=== PATIENT | male | born 1995 | race Caucasian/White ===

== ENCOUNTER 2021-12-12 09:50 | Emergency (ER) | payer MEDICAID, SELFPAY ==
--- NOTE | 2021-12-12 10:01 | ED_ITS ---
HPI - Overdose General Chief Complaint: Overdose Stated Complaint: OD Time Seen by Provider: 12/12/21 09:51 Source: patient Mode of arrival: EMS Limitations: no limitations History of Present Illness HPI Narrative: 26 yo male no PMH has been feeling stressed recently due to loss of cousin but no SI, snorts typically 5 bags of heroin a day. Used one bag this AM, family found him laying down on the floor woke up with tactile stimuli. No narcan given and has been calm and appropriate since arrival. He does endorse interest in MAT therapy on arrival but not detox. MD complaint: accidental overdose Onset (ago): minute(s) (prior to arrival ) Context: Accidental Overdose: wanted to get high Associated symptoms: lethargy Treatments Prior to Arrival: none Related Data Previous Rx's Medication Instructions Recorded doxycycline hyclate 100 mg capsule 100 mg PO BID 10 days #20 caps 12/12/21 Allergies Allergy/AdvReac Type Severity Reaction Status Date / Time No Known Allergies Allergy Verified 12/12/21 10:07 Review of Systems Review of Systems: Constitutional : No Fever, No Chills ENT/Mouth : No Ear Pain, No Nasal Congestion, No sore throat Eyes: No Eye Pain, No Swelling, No Redness Cardiovascular : No Chest Pain, No SOB Respiratory : No Cough, No Sputum, No Dyspnea Gastrointestinal : No Nausea, No Vomiting, No Diarrhea, No Hematochezia, No Melena Genitourinary : No Dysuria, No Urinary Frequency, No Hematuria Musculoskeletal : No Myalgias Skin : No Skin Lesions, No rash Neuro : No Weakness, No Numbness, No Paresthesias, No Dizziness, No Headache Psych : positive Anxiety, no Depression, no SI/HI Heme/Lymph: No Lymphadenopathy Endocrine : No Polyuria, No Polydipsia All other systems reviewed and are negative [facility] Past Medical History Medical History Opiate use Social History Social History (Updated 12/12/21 @ 10:04 by Sylwia Michelle DO) Alcohol intake: current Alcohol intake frequency: a few times a week Patient Tobacco Use Status: Current everyday Tobacco user Use of substances other than those prescribed or required for medical reasons: Yes Substance Use Type: Heroin Last Used Substance: Just Prior to Admission Advance Directives: No Advance Directives Information Provided: No Physical Exam Vital Signs: Vital Signs: Last Vital Signs Temp 97.7 F 12/12/21 10:04 Pulse 72 12/12/21 11:58 Resp 12 12/12/21 11:58 BP 121/67 12/12/21 10:04 Pulse Ox 96 12/12/21 11:58 O2 Del Method 12/12/21 11:58 BMI result Body Mass Index 20.9 Appearance: Somnolent Oriented X3. No acute distress. Eyes: Pupils equal, round and reactive to light. 2mm ENT: Pharynx normal. Atraumatic head and face Neck: Normal inspection. Neck supple. CVS: Normal heart rate and rhythm. Pulses normal. Respiratory: No respiratory distress. Breath sounds normal. Abdomen: Soft and non-tender. Skin: Skin warm and dry. Normal skin color. Normal skin turgor. Extremities: No lower extremity edema. No calf ttp Neuro: Oriented X 3. No motor deficit. No sensory deficit. Course Course Course Narrative: + for gonorrhea and chlamydia now refusing suboxone/methadone wants to go home, no need for repeat narcan tolerating PO MDM - Overdose MDM Narrative Medical decision making narrative: 26 yo male with opiate use disorder here with accidental heroin overdose no SI, wants MAT therapy but not detox. RECOVERY team involved. Plan is to get him into the clinic. Will observe until more awake. No signs of head trauma. Lab Data Labs: Lab Results 12/12/21 Range/Units 10:44 Chlam trachomat DNA PCR DETECTED A (Not Detect.) N.gonorrhoeae DNA (PCR) DETECTED A (Not Detect.) Discharge Plan Discharge Clinical Impression: Opiate abuse, continuous, Chlamydial urethritis, Acute gonococcal urethritis Patient Disposition: Home, Self-Care Instructions: Chlamydia (ED), Gonorrhea (ED), Opioid Use Disorder (ED) Additional Instructions: return to ED for any worsening symptoms or concerns NO SEX FOR 1 WEEK WHILE ON TREATMENT TAKE ALL MEDICATIONS Prescriptions: New doxycycline hyclate 100 mg capsule 100 mg PO BID 10 Days Qty: 20 0RF
[2021-12-12 10:04] VITALS: BP 121/67; BP 126/70; PULSE 75; RESP 12; TEMP 36.5; O2SAT 96; O2SAT 98; BMI 20.9
[2021-12-12 10:08] VITALS: RESP 12; O2SAT 98
--- NOTE | 2021-12-12 10:36 | PC.NURSE ---
Pt ambulatory to bathroom with his RN and security for climate change risk assessor. States concerns for STI, probetec urine obtained, Dr Rahul boss. Denies SI, declines detox to this RN but interested in speaking CARE team for potential Methadone or Suboxone. Awake at this time, falls asleep but maintains sat 94-98% with RR 10-12.
[2021-12-12] MEDS: cefTRIAXone sodium 500 MG, Lidocaine HCl 1 % MPF 1 ML IM (11:22)
[2021-12-12] MEDS: Naloxone HCl Nasal TAKE HOME 4 MG SPRAY NOSTRILALT (11:22)
--- NOTE | 2021-12-12 11:37 | MHC.RECOVSUP ---
Recovery Support note: Patient is a 26 year old Ethiopian speaking male who presented to [facility] ED after using heroin and being found on the ground by his family. This va underwriter met with patient to discuss substance use and treatment options. Patient reports he is interested in started MAT and that he has been on Suboxone before. Patient declines ATS. Patient is difficult to engage and nods off during interview. This va underwriter will follow up with patient when he is more awake.
[2021-12-12 11:58] VITALS: PULSE 72; RESP 12; O2SAT 96
[2021-12-12 12:43] LABS: CT PCR DETECTED (Not Detect.); NG PCR DETECTED (Not Detect.)
--- NOTE | 2021-12-12 15:41 | MHC.RECOVSUP ---
Recovery Support note: This com writer met with patient prior to discharge to discuss substance use and treatment options. Patient declined SUDE. Patient reports daily heroin use of 5 bags a day and declines interest in detox. Patient previously expressed interest in MAT however at this time is requesting discharge and is not interested in discussing this further. This com writer offered to make patient an appointment at the [facility] however patient appeared indifferent. Patient provided with information for [facility] and encouraged him to come as a walk in or call ahead when he is ready to begin treatment. Patient acknowledged. Discussed case with ED physician.
== END 2021-12-12 16:00 | disposition home or self-care (01) ==
PROVIDERS: Emergency Provider Emergency Medicine
DX: T40.1X1A Poisoning by heroin, accidental (unintentional), initial encounter (principal); Y92.9 Unspecified place or not applicable; F17.200 Nicotine dependence, unspecified, uncomplicated; F11.19 Opioid abuse with unspecified opioid-induced disorder; A56.01 Chlamydial cystitis and urethritis; A54.01 Gonococcal cystitis and urethritis, unspecified; Z71.6 Tobacco abuse counseling; Z79.899 Other long term (current) drug therapy
CPT/HCPCS: 87491; 87591; 96372; 99284; J0696

== ENCOUNTER 2024-03-15 14:07 | Outpatient (REF) | payer MEDICAID, SELFPAY ==
--- OUTSIDE RECORDS SUMMARY | 2024-03-15 15:06 | XMS_ITS | Clinical Summary ---
Author Organization [employer] Address [address] [place] [address] Care Team Providers Care Formulator Name Role Phone Unavailable Primary Care Provider Unavailabl e Allergies No known active allergies Medications naloxone (Narcan) 4 mg/0.1 mL nasal spray Administer 1 spray (4 mg) into affected nostril(s) if needed for opioid reversal. May repeat every 2-3 minutes if needed, alternating nostrils, until medical assistance becomes available. 2 each 02/01/20 24 025 Active docusate sodium (Colace) 100 MG capsule Take 1 capsule (100 mg) by mouth if needed in the morning and at bedtime for constipation. 60 capsule 3 03/01/19 25 026 Active Buprenorphine HCl-Naloxone HCl (Suboxone) 8-2 MG SL filmIndicatio ns:Uncomplica aleshia opioid dependence (CMS/HCC) Place 1 Film under the tongue 2 times daily for 7 days. 14 Film 03/09/19 25 025 Active Buprenorphine HCl-Naloxone HCl (Suboxone) 8-2 MG SL filmIndicatio ns:Uncomplica aleshia opioid dependence (CMS/HCC) Place 1 Film under the tongue 2 times daily for 7 days. 14 Film 02/11/20 24 024 Discontinued(Re order (will not trigger notification to Pharmacy)) Buprenorphine HCl-Naloxone HCl (Suboxone) 8-2 MG SL filmIndicatio ns:Uncomplica aleshia opioid dependence (CMS/HCC) Place 1 Film under the tongue 2 times daily for 7 days. 14 Film 02/16/20 24 025 Discontinued(Re order (will not trigger notification to Pharmacy)) Buprenorphine HCl-Naloxone HCl (Suboxone) 8-2 MG SL filmIndicatio ns:Uncomplica aleshia opioid dependence (CMS/HCC) Place 1 Film under the tongue 2 times daily for 14 days. 28 Film 02/25/19 25 025 Discontinued(Re order (will not trigger notification to Pharmacy)) Active Problems Problem Noted Date Diagnosed Date Opioid dependence, uncomplicated 01/25/2024 Tobacco dependence 01/25/2024 Cocaine use 01/25/2024 Encounters Date Type Department Care Team Description 03/15/2024 2:15 PM EST Office Visit [address] [address] Salvatore Boss MD Opioid dependence, uncomplicated (CMS/HCC) (Primary Dx) 03/15/2024 Travel 03/09/[address] [address] Mera Yeh RN Uncomplicated opioid dependence (CMS/HCC) 03/01/2024 3:00 PM EST Office Visit [address] [address] Salvatore Boss MD Opioid type dependence, continuous (CMS/HCC) (Primary Dx) 03/01/2024 Travel 02/25/[address] [address] Mera Yeh RN Uncomplicated opioid dependence (CMS/HCC) 02/25/[address] [id number] Mera Yeh RN Uncomplicated opioid dependence (CMS/HCC) 02/23/2024 11:15 AM EST Clinical Support [address] [address] Mera Yeh RN Opioid type dependence, continuous (CMS/HCC) (Primary Dx) 02/23/[address] [address] Richard Fallon MD 02/23/2024 Patient Outreach [address] [phone] Chiki Avila Recovery Supports 02/23/2024 Travel 02/16/2024 Refill [facility] [address] [facility] [place] [address] Mera Yeh RN Uncomplicated opioid dependence (CMS/HCC) 02/15/2024 3:30 PM EST Office Visit [facility] [place] [address] Salvatore Boss MD Opioid dependence, uncomplicated (CMS/HCC) (Primary Dx) 02/15/2024 Travel 02/09/2024 Refill [facility] [place] [address] Mera Yeh RN Uncomplicated opioid dependence (CMS/HCC) 02/08/2024 2:30 PM EST Clinical Support [facility] [address] Mera Yeh RN Uncomplicated opioid dependence (CMS/HCC) (Primary Dx) 02/08/2024 Travel 02/02/2024 Refill [facility] [address] Mera Yeh RN Uncomplicated opioid dependence (CMS/HCC) 02/01/2024 3:15 PM EST Office Visit [facility] [address] Salvatore Boss MD Uncomplicated opioid dependence (CMS/HCC) (Primary Dx) 02/01/2024 Travel 01/28/2024 Refill [facility] [address] Mera Yeh RN Uncomplicated opioid dependence ([facility]/HCC) 01/25/2024 3:00 PM EST Office Visit [facility] [place] [address] Salvatore Bsos MD Uncomplicated opioid dependence (CMS/HCC) (Primary Dx) 01/25/2024 Travel 01/19/2024 Refill [facility] [place] [address] Mera Yeh RN Uncomplicated opioid dependence (CMS/HCC) 01/12/2024 Refill [facility] [place] [address] Mera Yeh RN Uncomplicated opioid dependence (CMS/HCC) 01/11/2024 3:30 PM EST Clinical Support [facility] [address] [place] [id number] Mera Yeh RN Uncomplicated opioid dependence (CMS/HCC) (Primary Dx) 01/11/2024 Patient Outreach [address] [address] Bruce Camp 01/11/2024 Travel 01/07/2024 Refill [facility] [address] [place] [address] Mera Yeh RN Uncomplicated opioid dependence (CMS/HCC) 01/06/2024 10:45 AM EST Clinical Support [address] [address] Mera Yeh RN Uncomplicated opioid dependence (CMS/HCC) (Primary Dx) 01/06/2024 Travel 12/30/2023 10:15 AM EST Clinical Support [address] [address] Lee Colon RN Uncomplicated opioid dependence (CMS/HCC) (Primary Dx) 12/30/2023 Refill [facility] [address] [place] [address] Lee Colon RN Uncomplicated opioid dependence (CMS/HCC) 12/30/[address] [address] Lee Colon RN New Patient request 12/30/2023 Travel 12/23/[address] [address] Lee Colon RN Uncomplicated opioid dependence (CMS/HCC) 12/22/2023 11:00 AM EST Office Visit [address] [address] Newton Lundberg MD Uncomplicated opioid dependence (CMS/HCC) (Primary Dx); Tobacco use disorder; Cocaine use 12/22/2023 Travel from Last 3 Months Social History Tobacco Use Types Packs/Day Years Used Date Smoking Tobacco: Every Day Cigarettes Smokeless Tobacco: Never Housing Stability Answer Date Recorded What is your housing situation today? I have lisa mandujano 01/25/[address] you li ve. Do you have problems with any of the following? None of the above 01/25/2024 Food Insecurity Answer Date Recorded Within the past 12 months, y ou worried that your food would run out before you got money to buy more: Never True 01/25/2024 Within the past 12 months,th e food you bought just didn't last and you didn't have enough money to get more: Never True 10/2023 Transportation Answer Date Recorded In the past 12 months, has l ack of transportation kept you from medical appts, meetings, work or from getting things needed for daily living? No 01/25/2024 Utilities Answer Date Recorded In the past 12 months, has t he electric, gas, oil or water company threatened to shut off services in your home? No 01/25/2024 Internet Access Answer Date Recorded Internet Access Q1 Yes 01/25/2024 Internet Access Q2 Not on file 01/25/2024 Sex and Gender Information Value Date Recorded Sex Assigned at Male 12/16/2021 10:40 AM EDT Legal Sex Male 10:40 AM EDT Gender Identity Male 12/16/2021 10:40 AM EDT Sexual Orientation Straight 12/16/2021 10 :40 AM EDT Last Filed Vital Signs Vital Sign Reading Time Taken Comments Blood Pressure 109/68 12/22/2023 11:03 AM EST Pulse 65 12/22/2023 11:03 AM EST Temperature 36.6 ??C (97.8 ??F) 12/22/2023 11:[address] Respiratory Rate 16 12/22/2023 11:03 AM EST Oxygen Saturation - - Inhaled Oxygen Concentration - - Weight 72.8 kg (160 lb 9.5 oz) 05/14/2021 12:03 AM EDT Height 169 cm (5' 6.54 ) 05/14/2021 12:03 AM EDT Body Mass Index 25.51 05/14/2021 12:03 AM EDT Plan of Treatment Upcoming Encounters Date Type Department Care Team (Late st Contact Info) Description 03/21/2024 1:30 PM EST Office Visit [facility] [address] [place] [address] Salvatore Boss MD [address] [place] [address] Health Maintenance Due Date Last Done Comments Depression Screening 1994 Lipid Panel 1994 Pneumococcal Vaccine: Pediatrics (0 to 5 Years) and At-Risk Patients (6 to 64 Years) (1 of 2 - PCV) 2000 Family Planning (PISQ) 2009 Hepatitis A Vaccines (1 of 2 - Risk 2-dose series) 2013 DTaP/Tdap/Td Vaccines (7 - Td or Tdap) 11/01/2015 10/31/2005, 06/18/1999, 06/15/1996, Additional history exists COVID-19 Vaccine ( - season) 2023 04/25/2021, 03/28/2021 Influenza Vaccine (#1) 2023 01/25/2009 Alcohol/Substance Use Screening 01/24/2025 01/25/2024 SDOH Screening 01/24/2025 01/25/2024 Tobacco Screening 03/15/2025 03/15/2024 Zoster Vaccines (1 of 2) 2044 RSV Patients and Patients Aged 60 years or older (1 - 1-dose 75+ series) 2069 Hepatitis B Vaccines Completed 12/17/1995, 08/16/1995, 04/15/1995, Additional history exists HIB Vaccines Completed 06/15/1996, 11/18, 06/16/1995, Additional history exists IPV Vaccines Completed 06/18/1999, 11/18, 12/17/1995, Additional history exists Meningococcal Vaccine Aged Out 02/17/2007 No parth skyla eligible based on patient's age to complete this topic HIV Screening Completed 06/06/2021 Hepatitis C Screening Completed 06/06/2021 HPV Vaccines Aged Out No longer eligi ble based on patient's age to complete this topic RSV under 20 months Aged Out No longe r eligible based on patient's age to complete this topic Rotavirus Vaccines Aged Out No longer eligible based on patient's age to complete this topic Procedures Procedure Name Priority Date/Time Associated Diagnosis Comments POCT VERONICA-14 URINE DRUG SCREEN Routine 03/15/2024 1:59 PM EST Opioid dependence, uncomplicated (CMS/HCC) POCT VERONICA-14 URINE DRUG SCREEN Routine 03/01/2024 3:00 PM EST Opioid type dependence, continuous (CMS/HCC) POCT VERONICA-14 URINE DRUG SCREEN Routine 02/23/2024 11:24 AM EST Opioid type dependence, continuous (CMS/HCC) POCT VERONICA-14 URINE DRUG SCREEN Routine 02/15/2024 3:58 PM EST Opioid dependence, uncomplicated (CMS/HCC) POCT VERONICA-14 URINE DRUG SCREEN Routine 02/08/2024 2:00 PM EST Uncomplicated opioid dependence (CMS/HCC) POCT VERONICA-14 URINE DRUG SCREEN Routine 02/01/2024 3:52 PM EST Uncomplicated opioid dependence (CMS/HCC) POCT VERONICA-14 URINE DRUG SCREEN Routine 01/25/2024 3:34 PM EST Uncomplicated opioid dependence (CMS/HCC) POCT VERONICA-14 URINE DRUG SCREEN Routine 01/11/2024 3:28 PM EST Uncomplicated opioid dependence (CMS/HCC) POCT VERONICA-14 URINE DRUG SCREEN Routine 01/06/2024 3:23 PM EST Uncomplicated opioid dependence (CMS/HCC) POCT VERONICA-14 URINE DRUG SCREEN Routine 12/30/2023 1:47 PM EST Uncomplicated opioid dependence (CMS/HCC) POCT VERONICA-14 URINE DRUG SCREEN Routine 12/22/2023 11:04 AM EST Uncomplicated opioid dependence (CMS/HCC) ZZZ HISTORICAL HEPATITIS C AB W/REFL TO HCV RNA, QN, PCR Routine 06/06/2021 2:56 PM EDT HIV 1/2 ANTIGEN/ANTIBODY, FOURTH GENERATION W/RFL Routine 06/06/2021 2:56 PM EDT from Last 3 Months or Most Recently Relevant to Health Maintenance Results * POCT VERONICA-14 Urine Drug Screen (03/15/2024 1:59 PM EST) Only the most recent of11 resultswithin the time period is included. Pathologist [facility] THC Negative Cocaine Screen, Urine Positive Opiate Screen, Urine Negative Methamphetamine Screen Urine Negative Amphetamine Screen, Urine Negative Benzodiazepines Screen, Urine Negative Barbiturate Screen, Urine Negative Methadone Screen, Urine Negative Buprenophine Screen, Urine Positive TCA, Urine Negative MDMA Urine Negative ng/mL Oxycodone Screen, Urine Negative Phencyclidine (PCP), Urine Negative Propoxyphene, Urine Negative Fentanyl, Urine Negative Urine Urine specimen obtained by clean catch procedure / Unknown 03/15/2024 1:59 PM EST us Salvatore Boss MD POINT OF CARE TEST ENTER/EDIT OR DERABLES Final Result * HEPATITIS C AB W/REFL TO HCV RNA, QN, PCR (06/06/2021 2:56 PM EDT) Pathologist [facility] HEPATITIS C ANTIBODY NON-REACT GRETCHEN NON-REACT GRETCHEN [facility] INDEX 0.01 <1.00 [facility] Comment: ?? HCV antibody was non-reactive. There is no laboratory ?? evidence of HCV infection. ?? In most cases, no further action is required. However, if recent HCV exposure is suspected, a test for HCV RNA (test code 55981) is suggested. ?? For additional information please refer to http://education.Autopilot/faq/UHB61v6 (This link is being provided for informational/ educational purposes only.) ?? 06/06/2021 2:56 PM EDT us Salvatore Boss MD HISTORICAL/NON ORDERABLE LABS Fi nal Result [facility] [address] * HIV 1/2 ANTIGEN/ANTIBODY,FOURTH GENERATION W/RFL (06/06/2021 2:56 PM EDT) [facility] HIV-1/2 ANTIGEN AND ANTIBODIES, 4TH GENERATION W/ REFLEX NON-REACT GRETCHEN NON-REACT GRETCHEN [facility] Comment: HIV-1 antigen and HIV-1/HIV-2 antibodies were not detected. There is no laboratory evidence of HIV infection. ?? PLEASE NOTE: This information has been disclosed to you from records whose confidentiality may be protected by state law. ??If your state requires such protection, then the state law prohibits you from making any further disclosure of the information without the specific written consent of the person to whom it pertains, or as otherwise permitted by law. A general authorization for the release of medical or other information is NOT sufficient for this purpose. ? For additional information please refer to http://education.Autopilot/faq/CHE215 (This link is being provided for informational/ educational purposes only.) ? The performance of this assay has not been clinically validated in patients less than 2 years old. ?? 06/06/2021 2:56 PM EDT us Salvatore Boss MD LAB BLOOD ORDERABLES Final Resul t Performing Organization Address City/State/[facility] Co de Phone Number [facility] [address] from Last 3 Months or Most Recently Relevant to Health Maintenance Insurance [address] [place] [address] [facility] [address] [place] [address]
--- OUTSIDE RECORDS SUMMARY | 2024-03-15 15:06 | XMS_ITS | Encounter Summary ---
Author Organization [employer] Address [address] [place] [address] Care Team Providers Care Repair Coil Winder Name Role Phone Unavailable Primary Care Provider Unavailabl e Encounter Details Date Type Department Care Team (Latest Contact Info) Description 02/23/2024 Travel Social History Tobacco Use Types Packs/Day Years [...] Orientation Straight 12/16/2021 10 :40 AM EDT documented as of this encounter Plan of Treatment Upcoming Encounters Date Type Department Care Team (Late st Contact Info) Description 03/21/2024 1:30 PM EST Office Visit [facility] [address] [place] [address] Salvatore Boss MD [address] [place] [address] documented as of this encounter Visit Diagnoses Not on filedocumented in this encounter
--- OUTSIDE RECORDS SUMMARY | 2024-03-15 15:06 | XMS_ITS | Encounter Summary ---
Author Organization [employer] Address [address] [facility] [address]t [place] [address] Care Team Providers Care Pathology Laboratory Director Name Role Phone Unavailable Primary Care Provider Unavailabl e Reason for Visit * Reason Comments [facility] Recovery Supports Encounter Details Date Type Department Care Team ([facility] st Contact Info) Description 02/23/2024 Patient Outreach [facility] [address] [place] [address] Chiki Avila Recovery Supports Social History Tobacco Use Types Packs/Day Years Used Date Smoking Tobacco: Every Day Cigarettes Smokeless Tobacco: Never Housing Stability Answer Date Recorded What is your housing situation today? I have lisasammy mandujano 01/25/[address] you [...] AM EDT documented as of this encounter Progress Notes * Chiki Avila - 02/23/2024 11:36 AM EST I met with Efrain today. Setting: in person at [facility] Recovery Wellness Goals worked on: Social Stability Action taken/next steps: Offered person centered recovery support Additional comments: Chiki Avila documented in this encounter Plan of Treatment Upcoming Encounters Date Type Department Care Team (Late st Contact Info) Description 03/21/2024 1:30 PM EST Office Visit [facility] [address] [place] [id number] Salvatore Boss MD [address] [place] [address] documented as of this encounter Visit Diagnoses Not on filedocumented in this encounter
--- OUTSIDE RECORDS SUMMARY | 2024-03-15 15:06 | XMS_ITS | Encounter Summary ---
Author Organization [employer] Address [address] [place] [address] Care Team Providers Care Travel Insurance Agent Name Role Phone Unavailable Primary Care Provider Unavailabl e Encounter Details Date Type Department Care Team (Latest Contact Info) Description 02/15/2024 Travel Social History Tobacco Use Types Packs/Day [...] Description 03/21/2024 1:30 PM EST Office Visit [facility] [address] [place] [address] Salvatore Boss MD [address] [place] [address] documented as of this encounter Visit Diagnoses Not on filedocumented in this encounter
--- OUTSIDE RECORDS SUMMARY | 2024-03-15 15:06 | XMS_ITS | Encounter Summary ---
Author Organization [employer] Address [address] [facility] 7t [place] [address] Care Team Providers Care Senior Ux Developer Name Role Phone Unavailable Primary Care Provider Unavailabl e Encounter Details Date Type Department Care Team ([facility] Contact Info) Description 02/23/2024 Telephone [facility] [address] [place], [place] [phone] Richard Fallon MD [address] [place], [place] [phone] Social History Tobacco Use Types Packs/Day Years [...] AM EDT documented as of this encounter Miscellaneous Notes * Telephone Encounter - Braden Lawson - 02/23/2024 1:37 PM EST Outgoing call to patient to book THEATRE PROGRAM DIRECTOR appt. No Answer. Left Message. documented in this encounter Plan of Treatment Upcoming Encounters Date Type Department Care Team (Late st Contact Info) Description 03/21/2024 1:30 PM EST Office Visit [facility] [address] [place] [phone] Salvatore Boss MD [address] [place] [address] documented as of this encounter Visit Diagnoses Not on filedocumented in this encounter
--- OUTSIDE RECORDS SUMMARY | 2024-03-15 15:06 | XMS_ITS | Encounter Summary ---
Author Organization [employer] Address [address] [facility] 7t [place] [address] Care Team Providers Care Manager Of Applications Development Name Role Phone Unavailable Primary Care Provider Unavailabl e Reason for Visit * Reason Onset Date Comments Med Refill 02/25/2024 Encounter Details Date Type Department Care Team ([facility] st Contact Info) Description 02/25/2024 Refill [facility] [address] [place] [address] Mera Yeh RN Uncomplicated opioid dependence (CMS/HCC) Social History Tobacco Use Types Packs/Day Years [...] Description 03/21/2024 1:30 PM EST Office Visit [facility] 230 [place] [address] Salvatore Boss MD 230 [place] [address] documented as of this encounter Visit Diagnoses Diagnosis Uncomplicated opioid dependence (CMS/HCC) documented in this encounter
--- OUTSIDE RECORDS SUMMARY | 2024-03-15 15:06 | XMS_ITS | Clinical Summary ---
Author Organization [facility] Address [address] [place] [address] Phone Care Team Providers Care Applique Cutter Name Role Phone Elicia Graves BUSINESS LINE CONTROLLER Primary Care Provider Unavail able Immunizations Name Administration Dates Next Due DTP 12/17/1995,06/16/1995,04/15/1995 DTaP 5 06/18/1999,06/15/1996 H1N1 01/25/2009 Hep B, ped/adol 12/17/1995,04/15/1995,1994 Hib (PRP-T) 06/15/1996, 6,06/16/1995, 996 IPV 12/17/1995,06/16/1995,04/15/1995 MMR 06/18/1999,12/17/1995 Meningococcal Conj (Menactra) MCV4P 02/17/2007 OPV 06/18/1999 Tdap 10/31/2005 Family History Relation Name Status Comments Half-Brother Alive Half brother (M ): Alive and well Half-Sister Alive Half sister (M) : Alive and well, Alive and well Mother Alive Mother: Alive a nd well Other 1 Alive grandparents si ster: Asthma Other 2 No family histo ry of Obesity, No family history of Autism, No family history of Diabetes mellitus, No family history of ADD/ADHD, No family history of Deafness, No family history of Sudden /MN under age 55, No family history of Elevated cholesterol, No family history of Seizure disorder, No family history of Developmental dislocation of hip, No family history of Strabismus/amblyopia, Family history of Migraines Social History Tobacco Use Types Packs/Day Years Used Date Smoking Tobacco: Never Assessed Sex and Gender Information Value Date Recorded Sex Assigned at Not on file Legal Sex Male 4:30 PM EDT Gender Identity Not on file Sexual Orientation Not on file Last Filed Vital Signs Vital Sign Reading Time Taken Comments Blood Pressure 102/74 06/28/2009 12:00 AM EDT Pulse 68 06/28/2009 12:00 AM EDT Temperature 36.4 ??C (97.5 ??F) 06/28/2009 12:00 AM E DT Respiratory Rate - - Oxygen Saturation - - Inhaled Oxygen Concentration - - Weight 53.1 kg (117 lb) 06/28/2009 12:00 AM EDT Height 165.1 cm (5' 5 ) 06/28/2009 12:00 AM EDT Body Mass Index 19.47 06/28/2009 12:00 AM EDT Plan of Treatment Health Maintenance Due Date Last Done Comments Varicella Vaccines (1 of 2 - 13+ 2-dose series) 08/14/2007 DTaP,Tdap,and Td Vaccines (7 - Td or Tdap) 11/01/2015 10/31/2005, 06/18/1999, 06/15/1996, Additional history exists Influenza Vaccines (#1) 2023 COVID-19 Vaccine ( season) 2023 Hepatitis B Vaccines Completed 12/17/1995, 04/15/1995, 1994 HIB Vaccines Completed 06/15/1996, 11/18, 06/16/1995, Additional history exists IPV Vaccines Completed 06/18/1999, 11/18, 06/16/1995, Additional history exists MMR Vaccines Completed 06/18/1999, 12/17/1995 Meningococcal Vaccine Aged Out 02/17/2007 No parth skyla eligible based on patient's age to complete this topic HPV Vaccines Aged Out No longer eligi ble based on patient's age to complete this topic Hepatitis A Vaccines Aged Out No long er eligible based on patient's age to complete this topic Men B Vaccine Aged Out No longer elig ible based on patient's age to complete this topic Pneumococcal Vaccine Aged Out No long er eligible based on patient's age to complete this topic Care Teams Applique Cutter Relationship Specialty Start Date End Date Elicia Graves NP PCP - General 09/26/16
--- OUTSIDE RECORDS SUMMARY | 2024-03-15 15:06 | XMS_ITS | Encounter Summary ---
Author Organization [employer] Address [address] [facility] 7t [place] [address] Care Team Providers Care Sales Development Coordinator Name Role Phone Unavailable Primary Care Provider Unavailabl e Reason for Visit * Reason Comments OBAT F/U Encounter Details Date Type Department Care Team (Latest Contact Info) Description 02/23/2024 11:15 AM EST Clinical Support [facility] 230 [place] [address] Mera Yeh RN Opioid type dependence, continuous (CMS/HCC) (Primary Dx) Social History Tobacco Use Types Packs/Day Years [...] as of this encounter Progress Notes * Mera Yeh RN - 02/23/2024 11:15 AM EST Patient ID: Efrain Sosa is a 28 y.o. male. HPI Patient here today for Opioid Dependence RV. Patient on current Suboxone dose of 16/4 mg on a weekly schedule. Patient has been in the program for 7 weeks. MD intake: 12/22/23. LFTs done: labs ordered. Behavioral health: declined 12/30/23 [place] PAT reviewed by provider. Last PCP appt: not assigned, requested 12/30/23 Smoking status: 1/2 ppd 12/22/23 PrEP: discussed and pt deferred, 12/30/23 LAST VISIT 02/15/24 MassPAT reviewed. UTOX: + bup, david, opi, fent States that day he was at a hotel pool, Suboxone strips were in his pocket, became wet and unusable. Yesterday had w/d sx and sniffed 1/2 bag of heroin ; nobody was present with Narcan. [facility] has fentanyl test kit and Narcan. [facility] will put strips in waterproof bottle in future. Sniffs cocaine. Declines attending meetings. Labs have not yet been done. No constipation. Lives with his mother. Has 2 sons ages 7 and 12 who live with their mother in [place]. He sees them. Smokes 1/2 PPD, declines NRT. Occasional EtOH On SSI. Suboxone dental care discussed at prior visit. No Constipation. He declines speaking with chemical recovery operator or . TODAY 02/23/24 UTOX: +Bup, david Efrain presents for OBAT RN IN PERSON VISIT for Opioid Use Disorder. He is alert and oriented. Speech clear, but difficult to engage in conversation. Continues to use cocaine 3 or 4 x per week ($20 each time). He says he has enough fentanyl strips to test the cocaine, but does not use them all the time. Reviewed the risks of contamination with fentanyl and/or other drugs and risk for overdose. [facility] he does not use alone. He has narcan, but does not have it at the ready for someone to use if necessary. Reviewed potential risk of cardiac arrest secondary to cocaine use. Went to the recovery center briefly while he waited for his appt card and spoke with [place], chemical recovery operator. Plan: Suboxone dosing schedule of 16/4 mg daily and management of side effects reviewed. Recovery support, harm reduction (including Narcan), and behavioral health attendance reviewed. Appointment for 01/11/24 given. Patient expressed understanding and agreement with continuing plan of care. This information has been disclosed to you from records protected by federal confidentiality rules (42 CFR Part 2). The federal rules prohibit you from making any further disclosure of information inthis record that identifies a patient as having or having had a substance use disorder either directly, by reference to publicly available information, or through verification of such identification by another person unless further disclosure is expressly permitted by the written consent of the individual whose information is being disclosed or as otherwise permitted by (see2.3.1). The federal rules restrict any use of the information to investigate or prosecute with regard to a crime any patient with a substance use disorder, except as provided at 2.12??(5) and 2.65 documented in this encounter Plan of Treatment Upcoming Encounters Date Type Department Care Team (Late st Contact Info) Description 03/21/2024 1:30 PM EST Office Visit [facility] [address] [place] [address] Salvatore Boss MD [address] [place] [address] documented as of this encounter Procedures Procedure Name Priority Date/Time Associated Diagnosis Comments POCT VERONICA-14 URINE DRUG SCREEN Routine 02/23/2024 11:24 AM EST Opioid type dependence, continuous ([facility]) documented in this encounter Results * POCT VERONICA-14 Urine Drug Screen (02/23/2024 11:24 AM EST) THC Negative Cocaine Screen, Urine Positive Opiate [...] obtained by clean catch procedure / Unknown 02/23/2024 11:24 AM EST us Newton Lundberg MD POINT OF CARE TEST ENTER/EDIT ORDERABLES Final Result documented in this encounter Visit Diagnoses Diagnosis Opioid type dependence, continuous (CMS/[facility])- Primary Opioid type dependence, continuous documented in this encounter
--- OUTSIDE RECORDS SUMMARY | 2024-03-15 15:06 | XMS_ITS | Encounter Summary ---
Author Organization [employer] Address [address] [facility] 7t [place] [address] Care Team Providers Care Enrollment Nurse Name Role Phone Unavailable Primary Care Provider Unavailabl e Reason for Visit * Reason Onset Date Comments Med Refill 03/09/2024 Encounter Details Date Type Department Care Team ([facility] st Contact Info) Description 03/09/2024 Refill [facility] [address] [place] [address] Mera Yeh RN Uncomplicated opioid dependence (CMS/HCC) [...] Description 03/21/2024 1:30 PM EST Office Visit [facility] [address] [place] [address] Salvatore Boss MD [address] [place] [address] documented as of this encounter Visit Diagnoses Diagnosis Uncomplicated opioid dependence (CMS/HCC) documented in this encounter
--- OUTSIDE RECORDS SUMMARY | 2024-03-15 15:06 | XMS_ITS | Encounter Summary ---
Author Organization [employer] Address [address] [facility] 7t [place] [address] Care Team Providers Care Driving School Instructor Name Role Phone Unavailable Primary Care Provider Unavailabl e Reason for Visit * Reason Onset Date Comments Med Refill 02/16/2024 Encounter Details Date Type Department Care Team ([facility] st Contact Info) Description 02/16/2024 Refill [facility] [address] [place] [address] Mera Yeh RN Uncomplicated opioid dependence (CMS/HCC) [...] 03/21/2024 1:30 PM EST Office Visit [facility] [address] [place] [address] Salvatore Boss MD [address] [place] [address] documented as of this encounter Visit Diagnoses Diagnosis Uncomplicated opioid dependence (CMS/HCC) documented in this encounter
--- OUTSIDE RECORDS SUMMARY | 2024-03-15 15:06 | XMS_ITS | Encounter Summary ---
Author Organization [facility] Address [address] [place] [phone] Phone Care Team Providers Care Pasta Maker Name Role Phone Elicia Graves NP Primary Care Provider Unavail able Encounter Details Date Type Department Care Team (Late st Contact Info) Description 10/02/2016 Conversion Encounter [facility] - [address] [address] Social History Tobacco Use Types Packs/Day Years Used Date Smoking Tobacco: Never Assessed Sex and Gender Information Value Date Recorded Sex Assigned at Not on file Legal Sex Male 4:30 PM EDT Gender Identity Not on file Sexual Orientation Not on file documented as of this encounter Plan of Treatment Not on file documented as of this encounter Visit Diagnoses Not on filedocumented in this encounter Care Teams Pasta Maker Relationship Specialty Start Date End Date Elicia Graves NP PCP - General 09/26/16 documented as of this encounter
--- OUTSIDE RECORDS SUMMARY | 2024-03-15 15:06 | XMS_ITS | Encounter Summary ---
Author Organization [employer] Address [address] [facility] 7t [place] [address] Care Team Providers Care Equip Tech Name Role Phone Unavailable Primary Care Provider Unavailabl e Reason for Visit * Reason Comments OBAT Encounter Details Date Type Department Care Team ([facility] st Contact Info) Description 03/01/2024 3:00 PM EST Office Visit [facility]INE 230 [place], [place] [phone] Salvatore Boss MD [address] [place], [place] [phone] Opioid type dependence, continuous (CMS/HCC) (Primary Dx) [...] as of this encounter Progress Notes * Salvatore Boss MD - 03/01/2024 3:00 PM EST Subjective Patient ID: Efrain Sosa is a 28 y.o. male. HPI Patient here today for Opioid Dependence RV. Patient on current Suboxone dose of 16/4 mg on a weekly schedule. Patient has been in the program for 2 months. MD intake: 12/22/23. LFTs done: labs ordered. Behavioral health: declined 12/30/23 [place] PAT reviewed by provider. Last PCP appt: not assigned, requested 12/30/23 Smoking status: 1/2 ppd 12/22/23 PrEP: discussed and pt deferred, 12/30/23 MassPAT reviewed. UTOX: + bup, david, thc Sniffs cocaine. Declines attending meetings. Labs have not yet been done; we requested again that he go to lab. Occasional constipation. Prescribed Colace today. Lives with his mother. Has 2 sons ages 7 and 12 who live with their mother in [place]. He sees them. Smokes 1/2 PPD, declines NRT. Occasional EtOH On SSI. Suboxone dental care discussed at prior visit. No Constipation. He declines speaking with golf coach or . The following portions of the chart were reviewed this encounter and updated as appropriate: Tobacco Allergies Meds Problems Med Hx Surg Hx Fam Hx Review of Systems Constitutional: Negative for fever. Respiratory: Negative for shortness of breath. Cardiovascular: Negative for chest pain. Gastrointestinal: Negative for abdominal pain. Skin: Negative for rash. Neurological: Negative for headaches. Objective Physical Exam Vitals and nursing note reviewed. Constitutional: Appearance: Normal appearance. HENT: Head: Normocephalic and atraumatic. Nose: Nose normal. Eyes: Conjunctiva/sclera: Conjunctivae normal. Pupils: Pupils are equal, round, and reactive to light. Pulmonary: Effort: Pulmonary effort is normal. Skin: General: Skin is warm and dry. Neurological: Mental Status: He is alert. Gait: Gait is intact. Psychiatric: Mood and Affect: Mood and affect normal. Behavior: Behavior normal. Procedures Assessment/Plan Diagnoses and all orders for this visit: Opioid type dependence, continuous (CMS/HCC) Recovery support, harm reduction (including Narcan) and behavioral health attendance reviewed. Continue Suboxone 16/4 mg on weekly schedule. Prescribed Colace. Discussed goal of stopping all illicit substances, potential presence of Fentanyl in cocaine (have someone present with Narcan), and possibility of heart attack or stroke caused by cocaine use. - POCT VERONICA-14 Urine Drug Screen Other orders - docusate sodium (Colace) 100 MG capsule; Take 1 capsule (100 mg) by mouth if needed in the morning and at bedtime for constipation. documented in this encounter Plan of Treatment Upcoming Encounters Date Type Department Care Team (Late st Contact Info) Description 03/21/2024 1:30 PM EST Office Visit [facility] MEDICINE [address] [place] [phone] Salvatore Boss MD [address] [place] [address] documented as of this encounter Procedures Procedure Name Priority Date/Time Associated Diagnosis Comments POCT VERONICA-14 URINE DRUG SCREEN Routine 03/01/2024 3:00 PM EST Opioid type dependence, continuous (CMS/HCC) documented in this encounter Results * POCT VERONICA-14 Urine Drug Screen (03/01/2024 3:00 PM EST) THC Positive Cocaine Screen, Urine Positive Opiate Screen, Urine Negative Methamphetamine Screen Urine Negative Amphetamine Screen, Urine Negative Benzodiazepines Screen, Urine Negative Barbiturate Screen, Urine Negative Methadone Screen, Urine Negative Buprenophine Screen, Urine Positive TCA, Urine Negative MDMA Urine Negative ng/mL Oxycodone Screen, Urine Negative Phencyclidine (PCP), Urine Negative Propoxyphene, Urine Negative Fentanyl, Urine Negative Urine Urine specimen obtained by clean catch procedure / Unknown 03/01/2024 3:00 PM EST Salvatore Boss MD POINT OF CARE TEST ENTER/EDIT OR DERABLES Final Result documented in this encounter Visit Diagnoses Diagnosis Opioid type dependence, continuous (CMS/HCC)- Primary Opioid type dependence, continuous documented in this encounter
--- OUTSIDE RECORDS SUMMARY | 2024-03-15 15:06 | XMS_ITS | Encounter Summary ---
Author Organization [employer] Address [address] [facility] [address] 7[address] [place] [address] Care Team Providers Care Runner Worker Name Role Phone Unavailable Primary Care Provider Unavailabl e Encounter Details Date Type Department Care Team (Latest Contact Info) Description 03/15/2024 Travel Social History Tobacco Use Types Packs/Day [...] Description 03/21/2024 1:30 PM EST Office Visit [facility] [address] [place] [address] Salvatore Boss MD [address] [place] [address] documented as of this encounter Visit Diagnoses Not on filedocumented in this encounter
--- OUTSIDE RECORDS SUMMARY | 2024-03-15 15:06 | XMS_ITS | Encounter Summary ---
Author Organization [employer] Address [address] [facility] [address] [place] [address] Care Team Providers Care Insolvency Consultant Name Role Phone Unavailable Primary Care Provider Unavailabl e Encounter Details Date Type Department Care Team (Latest Contact Info) Description 03/01/2024 Travel Social History Tobacco Use Types Packs/Day [...] Description 03/21/2024 1:30 PM EST Office Visit [facility] MEDICINE [address] [place] [address] Salvatore Boss MD [address] [place] [address] documented as of this encounter Visit Diagnoses Not on filedocumented in this encounter
--- OUTSIDE RECORDS SUMMARY | 2024-03-15 15:06 | XMS_ITS | Encounter Summary ---
Author Organization [employer] Address [address] [facility] 7t [place] [address] Care Team Providers Care Rug Repairer Name Role Phone Unavailable Primary Care Provider Unavailabl e Reason for Visit * Reason Comments OBAT Encounter Details Date Type Department Care Team (Latest Contact Info) Description 03/15/2024 2:15 PM EST Office Visit [facility] [address] [place], [place] [phone] Salvatore Boss MD [address] [place], [place] [phone] Opioid dependence, uncomplicated (CMS/HCC) (Primary Dx) Social History Tobacco Use [...] Progress Notes * Salvatore Boss MD - 03/15/2024 2:15 PM EST Subjective Patient ID: Efrain Sosa [...] deferred, 12/30/23 MassPAT reviewed. UTOX: + bup, david Sniffs cocaine. Declines attending meetings. Declines meeting with monomer recovery supervisor or today. He is going to the lab today to have blood tests done. Occasional constipation. Has Colace Lives with his mother. Has 2 sons ages 7 and 12 who live with their mother in [place]. He sees them. Smokes 1/2 PPD, declines NRT. Occasional EtOH On SSI. Suboxone dental care discussed at prior visit. No Constipation. The following portions of the chart were [...] affect normal. Behavior: Behavior normal. Procedures Assessment/Plan Opioid dependence, uncomplicated (CMS/HCC) Recovery support, harm reduction (including Narcan) and behavioral health attendance reviewed. Continue Suboxone 16/4 mg on weekly schedule. Discussed goal of stopping all illicit substances, potential presence of Fentanyl in cocaine (have someone present with Narcan), and possibility of heart attack or stroke caused by cocaine use. documented in this encounter Plan of Treatment Upcoming Encounters Date Type Department Care Team (Late st Contact Info) Description 03/21/2024 1:30 PM EST Office Visit [facility] [address] [place], [place] [phone] Salvatore Boss MD [address] [place] [address] documented as of this encounter Procedures Procedure Name Priority Date/Time Associated Diagnosis Comments POCT VERONICA-14 URINE DRUG SCREEN Routine 03/15/2024 1:59 PM EST Opioid dependence, uncomplicated (CMS/HCC) documented in this encounter Results * POCT VERONICA-14 Urine Drug Screen (03/15/2024 1:59 PM EST) THC Negative Cocaine Screen, Urine Positive [...] procedure / Unknown 03/15/2024 1:59 PM EST Salvatore Boss MD POINT OF CARE TEST ENTER/EDIT OR DERABLES Final Result documented in this encounter Visit Diagnoses Diagnosis Opioid dependence, uncomplicated (CMS/HCC)- Primary documented in this encounter
--- OUTSIDE RECORDS SUMMARY | 2024-03-15 15:06 | XMS_ITS | Encounter Summary ---
Author Organization [facility] Address [address] [place] [phone] Phone Care Team Providers Care Running Instructor Name Role Phone Elicia Graves NP Primary Care Provider Unavail able Encounter Details Date Type Department Care Team (Late st Contact Info) Description 12/18/2009 Documentation [facility] [address] [place], [place] [phone] Family Medicine, Physician [address] [place] [address] Social History Tobacco Use Types Packs/Day Years [...] on filedocumented in this encounter Care Teams Running Instructor Relationship Specialty Start Date End Date Elicia Graves NP PCP - General 09/26/16 documented as of this encounter
--- OUTSIDE RECORDS SUMMARY | 2024-03-15 15:06 | XMS_ITS | Encounter Summary ---
Author Organization [employer] Address [address] [place] [address] Care Team Providers Care Perioperative Manager Name Role Phone Unavailable Primary Care Provider Unavailabl e Reason for Visit * Reason Comments OBAT Encounter Details Date Type Department Care Team (Latest Contact Info) Description 02/15/2024 3:30 PM EST Office Visit [facility] MEDICINE [address] [place], [place] [phone] Salvatore Boss MD [address], [place] [phone] Opioid dependence, uncomplicated (CMS/HCC) (Primary Dx) Social [...] Progress Notes * Salvatore Boss MD - 02/15/2024 3:30 PM EST Subjective Patient ID: Efrain Sosa [...] 12/30/23 [facility] reviewed. UTOX: + bup, david, opi, fent States that day he was at a hotel pool, Suboxone strips were in his pocket, became wet and unusable. Yesterday had w/d sx and sniffed 1/2 bag of heroin ; nobody was present with Narcan. States has fentanyl test kit and Narcan. [facility] will put strips in waterproof bottle in future. Sniffs cocaine. Declines attending meetings. Labs have not yet been done. No constipation. Lives with his mother. Has 2 sons ages 7 and 12 who live with their mother in [place]. He sees them. Smokes 1/2 PPD, declines NRT. Occasional EtOH On SSI. Suboxone dental care discussed at prior visit. No Constipation. He declines speaking with sustainability coach or . The following portions of the chart were reviewed this encounter and updated as appropriate: Review of Systems Constitutional: Negative for fever. [...] and all orders for this visit: Opioid dependence, uncomplicated (CMS/HCC) Recovery support, harm reduction (including Narcan) and behavioral health attendance reviewed. Continue Suboxone 16/4 mg on weekly schedule. Recovery support, harm reduction (including Narcan) and behavioral health attendance reviewed. Continue Suboxone 16/4 mg on weekly schedule. Discussed goal of stopping all illicit substances, potential presence of Fentanyl in cocaine (have someone present with Narcan), and possibility of heart attack or stroke caused by cocaine use. Discussed presence of Fentanyl in UTOX and risk of fatal overdose, and advised having someone present with Narcan if uses again. documented in this encounter Plan of Treatment Upcoming Encounters Date Type Department Care Team (Late st Contact Info) Description 03/21/2024 1:30 PM EST Office Visit [facility] MEDICINE [address] [place] [phone] Salvatore Boss MD [address] [place] [address] documented as of this encounter Procedures Procedure Name Priority Date/Time Associated Diagnosis Comments POCT VERONICA-14 URINE DRUG SCREEN Routine 02/15/2024 3:58 PM EST Opioid dependence, uncomplicated (CMS/HCC) documented in this encounter Results * POCT VERONICA-14 Urine Drug Screen (02/15/2024 3:58 PM EST) THC Negative Cocaine Screen, Urine Positive Opiate Screen, Urine Positive Methamphetamine Screen Urine Negative Amphetamine Screen, Urine Negative Benzodiazepines Screen, Urine Negative Barbiturate Screen, Urine Negative Methadone Screen, Urine Negative Buprenophine Screen, Urine Positive TCA, Urine Negative MDMA Urine Negative ng/mL Oxycodone Screen, Urine Negative Phencyclidine (PCP), Urine Negative Propoxyphene, Urine Negative Fentanyl, Urine Positive Urine Urine specimen obtained by clean catch procedure / Unknown 02/15/2024 3:58 PM EST Salvatore Boss MD POINT OF CARE TEST ENTER/EDIT OR DERABLES Final Result documented in this encounter Visit Diagnoses Diagnosis Opioid dependence, uncomplicated (CMS/HCC)- Primary documented in this encounter
--- OUTSIDE RECORDS SUMMARY | 2024-03-15 15:06 | XMS_ITS | Encounter Summary ---
Author Organization [employer] Address [address] [facility] [address] [place] [address] Care Team Providers Care Toll Test Desk Worker Name Role Phone Unavailable Primary Care Provider Unavailabl e Reason for Visit * Reason Onset Date Comments Med Refill 02/25/2024 Encounter Details Date Type Department Care Team ([facility] st Contact Info) Description 02/25/2024 Refill [facility] MEDICINE [address] [place] [phone] Mera Yeh RN Uncomplicated opioid dependence (CMS/HCC) [...] Description 03/21/2024 1:30 PM EST Office Visit [facility] MEDICINE [address] [place] [phone] Salvatore Boss MD [address] [place] [address] documented as of this encounter Visit Diagnoses Diagnosis Uncomplicated opioid dependence (CMS/HCC) documented in this encounter
[2024-03-15 16:48] LABS: Alanine Aminotransferase 15 U/L (0-40); Albumin Level 4.2 g/dL (3.5-5.0); Alkaline Phosphatase 46 U/L (39-117); Aspartate Amino Transferase 20 U/L (5-37); Bilirubin Direct 0.2 mg/dL (0.0-0.5); Bilirubin Total 0.7 mg/dL (0.0-1.0); Total Protein 6.9 g/dL (6.5-8.0)
[2024-03-16 03:23] LABS: Syphilis Screen Nonreactive (Nonreactive)
[2024-03-16 03:37] LABS: HBS Num1 1.45 mIU/mL (0-7.99); HBc Num1 0.07 S/CO (0.00-0.79); HBsAGNum1 0.41 S/CO (0.00-0.99); HIV AB/AG Nonreactive (Nonreactive); HIV Num 1 0.05 S/CO (0.00-0.99); Hepatitis B Core Antibody Nonreactive (Nonreactive); Hepatitis B Surface Antigen Negative (Negative); ~HepC Num1 0.09 S/CO (0.00-0.79); ~Hepatitis B Surface Antibody NONREACTIVE (Nonreactive); ~Hepatitis C Antibody Nonreactive (Nonreactive)
[2024-03-18 09:58] LABS: TS Negative Control Passed; TS Panel A 0; TS Panel B 0; TS Positive Control Passed; TSpotTB Negative (Negative)
== END 2024-03-15 14:08 | disposition home or self-care (01) ==
LOC: HO.HHCL 14:07
PROVIDERS: Visit Provider Family Medicine
DX: Z11.1 Encounter for screening for respiratory tuberculosis (principal); Z11.4 Encounter for screening for human immunodeficiency virus [HIV]; F11.20 Opioid dependence, uncomplicated
CPT/HCPCS: 36415; 80076; 86481; 86704; 86706; 86780; 86803; 87340; 87389